=== PATIENT | female | born 1975 | race Two or more races ===

== ENCOUNTER 2020-02-09 16:58 | Emergency (ER) | payer OTHER ==
--- NOTE | 2020-02-09 17:14 | EDM.PDOC ---
ED HPI GENERAL MEDICAL PROBLEM - General Chief Complaint: General Stated Complaint: [facility] Time Seen by Provider: 02/09/20 17:13 Source of Information: Reports: Patient History Limitations: Reports: No Limitations - History of Present Illness INITIAL COMMENTS - FREE TEXT/NARRATIVE: 44 yo female presents to ER via ambulance c/o SOB and weakness. She was hiking in [place] and became very SOB, anxious and have cramps in her legs and hands. She felt generally weak. She did start her period yesterday and her flow is very heavy. She does have hx of anxiety and is no longer taking medications. Her is interpreting for the visit. - Related Data Allergies Allergy/AdvReac Type Severity Reaction Status Date / Time No Known Allergies Allergy Verified 02/09/20 17:09 Home Meds: Home Meds NK [No Known Home Meds] 02/09/20 [History] ED ROS GENERAL - Review of Systems Review Of Systems: See Below Constitutional: Denies: Fever, Chills, Fatigue Respiratory: Reports: Shortness of Breath. Denies: Wheezing Cardiovascular: Denies: Chest Pain, Palpitations GI/Abdominal: Denies: Abdominal Pain Skin: Denies: Rash Psychiatric: Reports: Anxiety ED EXAM, GENERAL - Physical Exam Exam: See Below Exam Limited By: No Limitations General Appearance: Alert, WD/WN, Mild Distress Respiratory/Chest: No Respiratory Distress, Lungs Clear, Normal Breath Sounds. 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) Extremities: Other (left calf pain, improved when relaxed) Course - Vital Signs Last Recorded V/S: Last Vital Signs Temp 35.7 C L 02/09/20 21:05 Pulse 71 02/09/20 21:05 Resp 17 02/09/20 21:05 BP 104/44 L 02/09/20 21:05 Pulse Ox 98 02/09/20 21:05 - Orders/Labs/Meds Orders: Active Orders 24 hr Category Date Time Status Cardiac Monitoring [RC] .As Directed Care 02/09/20 17:15 Active Cardiac Monitoring [RC] .As Directed Care 02/09/20 19:32 Active EKG Documentation Completion [RC] ASDIRECTED Care 02/09/20 17:14 Active Chest 2V [CR] Stat Exams 02/09/20 20:07 Taken Sodium Chloride 0.9% [Normal Saline] 1,000 ml Med 02/09/20 17:15 Active IV ASDIRECTED EKG 12 Lead [EK] Routine Ther 02/09/20 17:13 Ordered Medication Orders Sodium Chloride (Normal Saline) 1,000 mls @ 250 mls/hr IV ASDIRECTED ARTEMIO Last Admin: 02/09/20 17:43 Dose: 250 mls/hr Documented by: BECCA Labs: Laboratory Tests 02/09/20 02/09/20 02/09/20 Range/Units 17:35 17:35 19:04 WBC 16.0 H (4.5-11.0) K/uL RBC 5.05 (3.30-5.50) M/uL Hgb 14.7 (12.0-15.0) g/dL Hct 42.6 (36.0-48.0) % MCV 84 (80-98) fL MCH 29 (27-31) pg MCHC 35 (32-36) % Plt Count 82 L (150-400) K/uL Neut % (Auto) 84 H (36-66) % Lymph % (Auto) 8 L (24-44) % Steele % (Auto) 7 H (2-6) % Eos % (Auto) 1 L (2-4) % Baso % (Auto) 0 (0-1) % D-Dimer, Quantitative (0.0-400.0) ng/mL Sodium 137 L (140-148) mmol/L Potassium 3.5 L (3.6-5.2) mmol/L Chloride 100 (100-108) mmol/L Carbon Dioxide 21 (21-32) mmol/L Anion Gap 19.5 H (5.0-14.0) mmol/L BUN 17 (7-18) mg/dL Creatinine 1.3 H (0.6-1.0) mg/dL Est Cr Clr Drug Dosing 40.49 mL/min Estimated GFR (MDRD) 45 L (>60) Glucose 123 H (74-106) mg/dL Calcium 9.0 (8.5-10.1) mg/dL Troponin I 0.079 H* 0.106 H* (0.000-0.056) ng/mL 02/09/20 Range/Units 20:07 WBC (4.5-11.0) K/uL RBC (3.30-5.50) M/uL Hgb (12.0-15.0) g/dL Hct (36.0-48.0) % MCV (80-98) fL MCH (27-31) pg MCHC (32-36) % Plt Count (150-400) K/uL Neut % (Auto) (36-66) % Lymph % (Auto) (24-44) % Steele % (Auto) (2-6) % Eos % (Auto) (2-4) % Baso % (Auto) (0-1) % D-Dimer, Quantitative 259 (0.0-400.0) ng/mL Sodium (140-148) mmol/L Potassium (3.6-5.2) mmol/L Chloride (100-108) mmol/L Carbon Dioxide (21-32) mmol/L Anion Gap (5.0-14.0) mmol/L BUN (7-18) mg/dL Creatinine (0.6-1.0) mg/dL Est Cr Clr Drug Dosing mL/min Estimated GFR (MDRD) (>60) Glucose (74-106) mg/dL Calcium (8.5-10.1) mg/dL Troponin I (0.000-0.056) ng/mL Meds: Medications Generic Name Dose Route Start Last Admin Trade Name Freq PRN Reason Stop Dose Admin Sodium Chloride 1,000 mls @ 250 mls/hr 02/09/20 17:15 02/09/20 17:43 Normal Saline IV 250 mls/hr ASDIRECTED ARTEMIO Administration Discontinued Medications Generic Name Dose Route Start Last Admin Trade Name Freq PRN Reason Stop Dose Admin Aspirin 324 mg 02/09/20 19:32 02/09/20 19:44 Aspirin PO 02/09/20 19:33 324 mg ONETIME ONE Administration Lorazepam 0.5 mg 02/09/20 17:49 02/09/20 18:10 Ativan IVPUSH 02/09/20 17:50 0.5 mg ONETIME ONE Administration - Re-Assessments/Exams Free Text/Narrative Re-Assessment/Exam: d-dimer negative at 259 and chest xray is also normal. admission to [facility] 02/09/20 19:15 relaxed and sleeping. EKG NSR at rate 74. trp mildly elevated at 0.079 three hours post redraw value increased to 0.079. normal is below 0.056. pt is resting comfortably on cot without complaint. [facility] Last Puller consulted he desired D-dimer and chest x-ray prior to acceptance. 02/09/20 19:23 02/09/20 20:15 02/09/20 21:20 Departure - Departure Time of Disposition: 21:21 Disposition: DC/Tfer to Acute Hospital 02 Condition: Good Clinical Impression: NSTEMI (non-ST elevated myocardial infarction) - Discharge Information *PRESCRIPTION DRUG MONITORING PROGRAM REVIEWED*: Not Applicable *COPY OF PRESCRIPTION DRUG MONITORING REPORT IN PATIENT PREET: Not Applicable Referrals: PCP,None [Primary Care Provider] - Forms: ED Department Discharge Sepsis Event Note (ED) - Focused Exam Vital Signs: Vital Signs Temp Pulse Resp BP Pulse Ox 02/09/20 21:05 35.7 C L 71 17 104/44 L 98 02/09/20 17:40 36.0 C L 75 18 139/67 100 02/09/20 17:00 36.0 C L 75 18 139/67 100 - My Orders Last 24 Hours: My Active Orders 02/09/20 17:13 EKG 12 Lead [EK] Routine 02/09/20 17:14 EKG Documentation Completion [RC] ASDIRECTED 02/09/20 17:15 Cardiac Monitoring [RC] .As Directed Sodium Chloride 0.9% [Normal Saline] 1,000 ml IV ASDIRECTED 02/09/20 19:32 Cardiac Monitoring [RC] .As Directed 02/09/20 20:07 Chest 2V [CR] Stat - Assessment/Plan Last 24 Hours: My Active Orders 02/09/20 17:13 EKG 12 Lead [EK] Routine 02/09/20 17:14 EKG Documentation Completion [RC] ASDIRECTED 02/09/20 17:15 Cardiac Monitoring [RC] .As Directed Sodium Chloride 0.9% [Normal Saline] 1,000 ml IV ASDIRECTED 02/09/20 19:32 Cardiac Monitoring [RC] .As Directed 02/09/20 20:07 Chest 2V [CR] Stat
[2020-02-09] MEDS ORDERED: Sodium Chloride 0.9% 1,000 ML IV SCH (17:15)
[2020-02-09] MEDS ORDERED: LORazepam 2 MG/ML SDV IVPUSH ONE (17:49)
[2020-02-09] MEDS ORDERED: Aspirin 81 MG Tab.Chew PO ONE (19:32)
--- NOTE | 2020-02-10 09:44 | CR ---
CHEST: 2 view CLINICAL HISTORY:Elevated TRP COMPARISON:None FINDINGS: The heart size, pulmonary vascularity and hilar structures are normal. No infiltrate effusion or pneumothorax is seen. IMPRESSION: No acute cardiopulmonary process.
== END 2020-02-09 22:37 ==
LOC: JP.ED 16:58
DX: I21.4 Non-ST elevation (NSTEMI) myocardial infarction (principal); N93.9 Abnormal uterine and vaginal bleeding, unspecified; M79.662 Pain in left lower leg
CPT/HCPCS: 36415; 71046; 80048; 84484; 85025; 85379; 93005; 96361; 96374; 99285; A9270; J2060; J7030; 93010